=== PATIENT | male | born 1955 | race Hispanic/Latino ===

== ENCOUNTER → 2021-02-05 | Outpatient (CLI) | payer MEDICARE | LOC: RAD 12:13 | PROVIDERS: ATTEND Internal Medicine | DX: R04.2 Hemoptysis (principal) | CPT/HCPCS: 71046 ==

== ENCOUNTER → 2021-02-08 | Outpatient (CLI) | payer MEDICARE ==
[~2021-02-08] MED LIST: IOPAMIDOL 370 MG/ML 200 ML INFUS..BTL INJ ONE; SODIUM CHLORIDE 0.9% 50ML 50 ML ONE
[2021-02-08 17:37] LABS: CREATININE, SERUM 0.96 mg/dL (0.72-1.25)
== END ==
LOC: CT 16:38
PROVIDERS: ATTEND Internal Medicine
DX: R04.2 Hemoptysis (principal)
CPT/HCPCS: 36415; 71260; 82565; 84520; Q9967